=== PATIENT | male | born 1985 | race Caucasian/White ===

== ENCOUNTER 2017-11-03 08:21 | Day surgery (SDC) | payer OTHER ==
[2017-11-01 13:54] VITALS: BMI 24.4
[2017-11-03 08:39] VITALS: TEMP 97.9
[2017-11-03 10:15] VITALS: BP 101/60; PULSE 82
--- NOTE | 2017-11-04 14:01 | PATH ---
Surgical Pathology Report Patient Name: ROGER CASTILLO [facility]. Rec. #: [id number] /Age/Gender: 1985 (Age: 32) / M Account: [id number] Location: [facility]-ENDOS[facility] Taken: 11/03/2017 Received: 11/03/2017 Reported: 11/04/2017 Physicians: Oj Larsen M.D. Specimen(s) Received A: BX RECTUM B: BX SIGMOID Clinical History Diarrhea, colitis Colitis and proctitis Final Diagnosis A. rectum, biopsy: Severe chronic active proctitis. Negative for dysplasia. B. distal sigmoid, biopsy: Colonic mucosa showing benign/reactive lymphoid aggregate. Negative for colitis. Electronically Signed Aidee Hernandez M.D. Gross Description A. Received in formalin, labeled "rectum" are 2 rosario, irregular portions of soft tissue measuring 0.2 cm. in greatest dimension. The specimens are submitted in toto in one cassette. B. Received in formalin, labeled "distal sigmoid" are 2 rosario, irregular portions of soft tissue measuring 0.2-0.3 cm. in greatest dimension. The specimens are submitted in toto in one cassette. [facility]/11/03/2017 [facility]/11/03/2017
== END 2017-11-03 10:10 | disposition home or self-care (01) ==
LOC: FASU-ENDO 08:21
PROVIDERS: ATTEND Internal Medicine Gastroenterology
PROC: 0DBP8ZX Excision of Rectum, Via Natural or Artificial Opening Endoscopic, Diagnostic (ICD-10-PCS; principal; 2017-11-03 09:24)
DX: K62.89 Other specified diseases of anus and rectum (principal)
CPT/HCPCS: 88305-TC